=== PATIENT | female | born 1995 | race Caucasian/White ===

== ENCOUNTER 2019-01-20 13:34 | Emergency (ER) | payer SELFPAY ==
[2019-01-20 13:43] VITALS: BP 125/76; PULSE 63; TEMP 97.7; BMI 18.1
[2019-01-20 15:32] LABS: BASO % 0.5 % (0-2.0); HEMATOCRIT 40.1 % (32.4-45.2); HEMOGLOBIN 13.9 GM/dL (10.7-15.3); LYMPH % 22.1 % (8-40); MCH 33.3 pg (25.7-33.7); MCHC 34.7 g/dl (32.0-36.0); MEAN CELL VOLUME 96.1 fl (80-96); MEAN PLT VOLUME 9.9 fl (7.5-11.1); MONO % 5.5 % (3.8-10.2); NEUT % 68.9 % (42.8-82.8); PLATELET COUNT 177 K/MM3 (134-434); RBC 4.17 M/mm3 (3.60-5.2); RDW 12.5 % (11.6-15.6); WHITE BLOOD COUNT 9.5 K/mm3 (4.0-10.0)
[2019-01-20 16:15] LABS: EPI CELLS 1.3 /HPF (0-5/HPF); URINE APPEARANCE CLEAR; URINE BACTERIA 30.3 /hpf (NEGATIVE); URINE BILIRUBIN NEGATIVE (NEGATIVE); URINE CASTS 1 /lpf (0-8); URINE COLOR YELLOW; URINE GLUCOSE (UA) NEGATIVE (NEGATIVE); URINE KETONE NEGATIVE (NEGATIVE); URINE LEUK ESTERASE NEGATIVE (NEGATIVE); URINE NITRITE NEGATIVE (NEGATIVE); URINE PROTEIN NEGATIVE (NEGATIVE); URINE RBC 19 /hpf (0-4); URINE UROBILINOGEN 0.2 mg/dL (0.2-1.0); URINE WBC 1 /hpf (0-5)
[2019-01-20 16:23] LABS: ANION GAP 6 MMOL/L (8-16); BLOOD UREA NITROGEN 9 mg/dL (7-18); CALCIUM 8.9 mg/dL (8.5-10.1); CHLORIDE 107 mmol/L (98-107); CO2 27 mmol/L (21-32); CREATININE 0.4 mg/dL (0.55-1.3); GLUCOSE,RANDOM 91 mg/dL (74-106); POTASSIUM 3.6 mmol/L (3.5-5.1); SODIUM 140 mmol/L (136-145)
--- NOTE | 2019-01-20 16:53 | PDOC ---
History of Present Illness - General Chief Complaint: Vaginal Bleeding Stated Complaint: VAGINAL BLEEDING Time Seen by Provider: 01/20/19 14:21 History Source: Patient Exam Limitations: No Limitations Past History - Past Medical History Allergies/Adverse Reactions: Allergies Allergy/AdvReac Type Severity Reaction Status Date / Time No Known Allergies Allergy Verified 01/20/19 15:07 Home Medications: Ambulatory Orders NK [No Known Home Medication] 01/20/19 - Suicide/Smoking/Psychosocial Hx Smoking History: Unknown if ever smoked Hx Alcohol Use: No Drug/Substance Use Hx: No *Physical Exam - Vital Signs Last Vital Signs Temp Pulse Resp BP Pulse Ox 97.7 F 63 20 125/76 100 01/20/19 13:38 01/20/19 13:38 01/20/19 13:38 01/20/19 13:38 01/20/19 13:38 - Physical Exam General Appearance: No: Apparent Distress Respiratory/Chest: positive: Lungs Clear, Normal Breath Sounds. negative: Respiratory Distress Cardiovascular: positive: Regular Rhythm, Regular Rate, S1, S2. negative: Murmur Female Pelvic Exam: positive: vaginal bleeding (blood in vault), other ( cervical os closed) Gastrointestinal/Abdominal: positive: Normal Bowel Sounds, Soft. negative: Tender, Distended, Guarding, Rebound Musculoskeletal: negative: CVA Tenderness Integumentary: positive: Normal Color Neurologic: positive: Alert, Normal Mood/Affect ED Treatment Course - LABORATORY CBC & Chemistry Diagram: 01/20/19 15:20 01/20/19 15:20 - ADDITIONAL ORDERS Additional order review: Laboratory Results 01/20/19 01/20/19 01/20/19 15:43 15:43 15:20 Sodium 140 Potassium 3.6 Chloride 107 Carbon Dioxide 27 Anion Gap 6 L BUN 9 Creatinine 0.4 L Creat Clearance w eGFR 201.49 Random Glucose 91 Calcium 8.9 Beta HCG, Quant 1893.0 Urine Color Yellow Urine Appearance Clear Urine pH 5.0 Ur Specific [place] 1.017 Urine Protein Negative Urine Glucose (UA) Negative Urine Ketones Negative Urine Blood 3+ H Urine Nitrite Negative Urine Bilirubin Negative Urine Urobilinogen 0.2 Ur Leukocyte Esterase Negative Urine WBC (Auto) 1 Urine RBC (Auto) 19 Urine Casts (Auto) 1 U Epithel Cells (Auto) 1.3 Urine Bacteria (Auto) 30.3 Urine HCG, Qual Positive 01/20/19 15:20 RBC 4.17 MCV 96.1 H MCHC 34.7 RDW 12.5 MPV 9.9 Neutrophils % 68.9 Lymphocytes % 22.1 Monocytes % 5.5 Eosinophils % 3.0 Basophils % 0.5 - RADIOLOGY Radiology Studies Ordered: Category Date Time Status TRANSVAGINAL US PREG [US] Stat Ultrasound 01/20/19 16:14 Ordered Medical Decision Making - Medical Decision Making 23 y/o F with no sig pmh, G0, presents with vaginal spotting from yesterday along with lower abdominal pain. LNMP was 11/26/18. Is concerned she may be ; took a test 5 days ago and states saw "2 lines." Denies fever, sob, cp, n/v/d, dysuria. R/O ectopic; consider threatened Plan: Labs, UA, Transvaginal ultrasound 01/20/19 16:52 Pelvic ultrasound results: The uterus is retroflexed. Gestational sac, yolk sac, and pole are identified. A heart rate of 124 bpm was identified. [place]-rump length measurements correspond to an expected gestational age of 6 weeks 3 days which is accurate to within plus or -4 days. These measurements correspond to an expected date of delivery of September 12, 2019. IUP noted Results endorsed to patient Stable for dc 01/20/19 19:01 *DC/Admit/Observation/Transfer Diagnosis at time of Disposition: Threatened - Discharge Dispostion Disposition: HOME Condition at time of disposition: Stable Decision to Admit order: No - Referrals - Patient Instructions Printed Discharge Instructions: DI for Threatened Additional Instructions: Thank you for choosing [facility]. It was a pleasure taking care of you. You were found to be Please start taking vitamins daily Also follow-up with bindery helper for continued care Recommend pelvic rest (avoid heavy lifting, sexual intercourse) Return to the Emergency Department if your symptoms worsen or persist, you have fever, shortness of breath, chest pain, severe abdominal pain, vomiting, heavy vaginal bleeding or other concerning symptoms. Print Language: CYPRIOT - Post Discharge Activity
== END 2019-01-20 19:20 | disposition home or self-care (01) ==
LOC: JER 13:34
DX: O26.891 Other specified pregnancy related conditions, first trimester (principal); O20.0 Threatened abortion; Z3A.01 Less than 8 weeks gestation of pregnancy
CPT/HCPCS: 36415; 76817-TC; 80048; 81003; 84702; 84703; 85025; 86850; 86900; 86901; 87086; 87186; 99281-25